=== PATIENT | male | born 2005 | race Two or more races ===

== ENCOUNTER → 2025-02-20 | Emergency (ER) | payer OTHER ==
[~2025-02-20] VITALS: Ht 162.6 cm; Wt 63.5 kg
[~2025-02-20] MED LIST: FAMOTIDINE/PF 20 MG/2 ML VIAL ONE; FAMOtidine 10 MG/ML (4ML VIAL) IV STA; ONDANSETRON HCL 2 MG/ML VIAL IV ONE; ONDANSETRON HCL 2 MG/ML VIAL ONE; RINGERS SOLUTION,LACTATED 1,000 ML IV STA
[2025-02-20 13:01] VITALS: BP 106/70; O2SAT 100
== END | disposition left against medical advice (07) ==
LOC: ER 12:00
DX: R10.13 Epigastric pain (principal); Z91.013 Allergy to seafood